=== PATIENT | male | born 1985 | race African-American/Black ===

== ENCOUNTER 2016-07-11 10:40 | Emergency (ER) | payer SELFPAY ==
[~2016-07-11 10:40] MED LIST: IBUPROFEN800 MG PO; PEN-VEE K PO; ULTRAM PO
[2016-07-11 12:04] LABS: AMPHETAMINE POS (NEG); BARBITURATES NEG (NEG); BENZODIAZEPINES NEG (NEG); COCAINE NEG (NEG); MARIJUANA POS (NEG); OPIATES POS (NEG); TRICYCLIC ANTIDEPRESSANTS NEG (NEG); U METHADONE NEG (NEG)
== END 2016-07-11 11:45 | disposition home or self-care (01) ==
LOC: CED 10:40
PROVIDERS: Emergency Medicine
DX: T40.1X1A Poisoning by heroin, accidental (unintentional), initial encounter (principal); F19.10 Other psychoactive substance abuse, uncomplicated; F17.210 Nicotine dependence, cigarettes, uncomplicated
CPT/HCPCS: 51701; 80307; 96374; 99283; J2310